=== PATIENT | female | born 1995 | race Caucasian/White ===

== ENCOUNTER → 2018-09-28 14:51 | Outpatient (CLI) | payer OTHER, SELFPAY ==
[2018-09-28 16:37] LABS: TSH w/ Reflex to FT4 3.12 uIU/mL (0.47-4.68)
[2018-09-28 19:03] LABS: Bilirubin Urine UA NEGATIVE (NEGATIVE); Color Urine UA YELLOW; Glucose Urine UA NEGATIVE (Normal); Ketones Urine UA 2+ (NEGATIVE); Leukocyte Esterase Urine UA TRACE (NEGATIVE); Nitrite Urine UA POSITIVE (Negative); Occult Blood Urine UA TRACE-LYSED (Negative); Protein Urine UA NEGATIVE (Negative); Specific Gravity Urine UA >=1.030 (1.000-1.035); Urobilinogen Urine UA 0.2 E.U./dL (0.2); pH Urine UA 5.5 (4.5-8.0)
[2018-09-28 19:06] LABS: RBC Urine 0-1/HPF (0-5/HPF); WBC Urine 5-10/HPF (0-5/HPF)
[2018-09-28 19:07] LABS: Amorphous Sediment Urine 2+; Appearance Urine UA Slightly Cloudy; Bacteria Urine Few (2-10); Culture Indicated Urine Specimen Cultured; Mucus Urine 1+ (Negative); Squamous Epithelial Cell Urine 5-10 /HPF
== END ==
PROVIDERS: Visit Provider Family Medicine
DX: E03.9 Hypothyroidism, unspecified (principal); R82.90 Unspecified abnormal findings in urine; Z87.440 Personal history of urinary (tract) infections
CPT/HCPCS: 36415; 81001; 84443; 87086

== ENCOUNTER → 2018-10-29 12:46 | Outpatient (CLI) | payer OTHER, SELFPAY ==
--- NOTE | 2018-10-29 12:46 | DI.US.S_ITS ---
PROCEDURE: US OB >= 14 WEEKS FETUS INDICATIONS: 20 weeks gestation OUTSIDE/PRIOR DATING DATA: Last menstrual period (LMP): 05/21/18. LMP-based estimated date of delivery (ALIDA): 03/15/19. First dating scan (date and location): 10/29/18. Estimated date of delivery (ALIDA) from first dating scan: 03/12/19. TECHNIQUE: Real-time scanning was performed of the fetus, with image documentation and biometric measurements. Endovaginal scanning: No COMPARISON: None. FINDINGS: General: A single living intrauterine gestation is present. Presentation: Transverse. Placenta: Placental position is anterior, without previa. Amniotic fluid index: 16.4 cm, normal range is 5-24 cm. heart rate: 153 beats per minute. Maternal cervical canal: 4.5 cm long. Normal lower limit is 2.5 cm. biometrics: Biparietal diameter: 20 weeks 4 days Head circumference: 20 weeks 4 days Abdominal circumference: 21 weeks 4 days Femur length: 20 weeks 3 days Estimated gestational age from initial scan: not applicable. Composite gestational age from present scan: 20 weeks 6 days Estimated weight and percentile: 393 g, 77nd percentile Measurement variability for biometric dating: +/- 7 days from 14 weeks to 15 weeks 6 days gestation, +/- 10 days from 16 weeks to 21 weeks 6 days gestation, +/- 2 weeks from 22 weeks to 27 weeks 6 days gestation, +/- 3 weeks for 28 weeks gestation or later. weight reference: 4500 g or EFW >90/95% is considered macrosomia or large for gestational age. EFW <10% is small for gestational age. EFW 5% or less is considered intra-uterine growth restriction. Anatomic survey: Neuro: Ventricles are non-dilated at less than 10 mm. Cisterna magna is normal at 3-11 mm. Cerebellum is normal in size and morphology. Nuchal skin fold: Normal at less than 6 mm between 14-21 weeks gestational age. Face: Nose and lips are normal, and facial profile is not well-seen. Spine: No evidence for spina bifida. Heart: 4-chambered heart is present, with normal ventricular outflow tracts. Diaphragm: Diaphragm is intact. Stomach: Left-sided stomach is present. Kidneys: No hydronephrosis. Normal is less than 5 mm in 2nd trimester, less than 7 mm in 3rd trimester. Cord: 3-vessel cord has orthotopic insertion. Bladder: Normal in size. Extremities: All 4 extremities identified. IMPRESSION: 1. Single living IUP present with a mean composite gestational age of 20 weeks 6 days corresponding to ultrasound ALIDA of 03/12/19. 2. Facial profile is not well visualized otherwise normal anatomy. Dictated by: Maicol MEREDITH Interpreted: Radha Sandoval MD on 10/29/2018 at 14:41 Approved by: Radha Sandoval M.D. on 10/29/2018 at 15:52
== END ==
PROVIDERS: Visit Provider Family Medicine
DX: Z34.92 Encounter for supervision of normal pregnancy, unspecified, second trimester (principal); Z3A.20 20 weeks gestation of pregnancy
CPT/HCPCS: 76811

== ENCOUNTER 2018-11-13 23:23 | Outpatient (CLI) | payer OTHER, SELFPAY ==
--- NOTE | 2018-11-15 08:18 | PM.OBTRLD ---
Visit Information Visit Information Date of evaluation: 11/13/18 Primary OB Provider: Suzanne Abdullahi Reason for Evaluation: Yes rule out labor Vital Signs Vital Signs: Blood pressure 115/66, pulse 107, temperature 97.6? PFSH Social History Smoking Status: Former smoker Evaluation Evaluation Baseline heart rate: 130 Variability: Moderate (11-25) monitor accelerations: Present monitor decelerations: Absent Contraction Frequency (minutes): 0 Non-invasive Membranes Rupture Test: negative Diagnosis, Plan/Disposition Final Diagnosis (1) 22 weeks gestation of : Current Visit: No Status: Acute (2) Premature uterine contractions in second trimester, antepartum: Current Visit: No Status: Acute Plan/Disposition Plan: Reassurance there is no rupture membranes and no evidence of contractions. Normal vaginal discharge in likely musculoskeletal or GI pain. Reassurance but call if there is any change. OB Disposition: home
== END 2018-11-14 00:10 | disposition home or self-care (01) ==
LOC: OB 11-15 15:49
PROVIDERS: Visit Provider Family Medicine
DX: Z34.02 Encounter for supervision of normal first pregnancy, second trimester (principal); Z3A.22 22 weeks gestation of pregnancy
CPT/HCPCS: 59025; 84112; G0378; G0379

== ENCOUNTER → 2018-12-03 09:01 | Outpatient (CLI) | payer OTHER, SELFPAY ==
[2018-12-03 10:41] LABS: Hematocrit 34.8 % (36-46); Hemoglobin 11.9 g/dL (12.0-16.0)
[2018-12-03 11:04] LABS: GTT (PREG) 1 Hour PP 50gm Dose 123 mg/dL (76-139)
[2018-12-03 13:30] LABS: TSH w/ Reflex to FT4 2.41 uIU/mL (0.47-4.68)
== END ==
PROVIDERS: PCP Family Medicine; Visit Provider Family Medicine
DX: Z34.82 Encounter for supervision of other normal pregnancy, second trimester (principal)
CPT/HCPCS: 36415; 82950; 84443; 85014; 85018

== ENCOUNTER → 2019-02-04 14:35 | Outpatient (CLI) | payer OTHER, SELFPAY ==
[2019-02-04 16:35] LABS: TSH w/ Reflex to FT4 2.56 uIU/mL (0.47-4.68)
== END ==
PROVIDERS: PCP Family Medicine; Visit Provider Family Medicine
DX: E03.9 Hypothyroidism, unspecified (principal); O99.280 Endocrine, nutritional and metabolic diseases complicating pregnancy, unspecified trimester
CPT/HCPCS: 36415; 84443

== ENCOUNTER → 2019-02-14 11:45 | Outpatient (CLI) | payer OTHER, SELFPAY ==
[2019-02-15 11:56] LABS: Strep Grp B PCR NEG for Grp B Strep
== END ==
PROVIDERS: PCP Family Medicine; Visit Provider Family Medicine
DX: Z34.83 Encounter for supervision of other normal pregnancy, third trimester (principal); Z3A.36 36 weeks gestation of pregnancy
CPT/HCPCS: 87653

== ENCOUNTER 2019-03-12 22:33 | Outpatient (CLI) | payer OTHER, SELFPAY | END 2019-03-12 23:10 | disposition home or self-care (01) | LOC: OB 03-15 16:37 | PROVIDERS: PCP Family Medicine | DX: O47.1 False labor at or after 37 completed weeks of gestation (principal); Z3A.40 40 weeks gestation of pregnancy | CPT/HCPCS: 59025; G0378; G0379 ==

== ENCOUNTER 2019-03-16 03:51 | Outpatient (CLI) | payer OTHER, SELFPAY | END 2019-03-16 05:00 | disposition home or self-care (01) | LOC: OB 03-18 10:43 | PROVIDERS: PCP Family Medicine; Visit Provider Family Medicine | DX: O47.03 False labor before 37 completed weeks of gestation, third trimester (principal); Z3A.40 40 weeks gestation of pregnancy | CPT/HCPCS: 59025; G0378; G0379 ==

== ENCOUNTER 2019-03-19 04:14 | Inpatient (IN) | payer OTHER, SELFPAY ==
[2019-03-19 04:55] LABS: Add Manual Diff / Slide Review NO; Basophils Absolute Auto 200 /uL (0-100); Basophils Percent Auto 1.3 % (0-2); Eosinophils Absolute Auto 100 /uL (0-450); Eosinophils Percent Auto 0.8 % (2-4); Hematocrit 37.1 % (36-46); Hemoglobin 12.2 g/dL (12.0-16.0); Lymphocytes Absolute Auto 3300 /uL (1100-4500); Mean Corpuscular Hemoglobin 26.9 PG (26-34); Mean Corpuscular Volume 81.6 fL (80-100); Monocytes Absolute Auto 1000 /uL (0-900); Neutrophils Absolute Auto 7400 /uL (1500-7000); Neutrophils Percent Auto 61.9 % (50-75); Platelet Count 342 X10^3/uL (150-400); Red Blood Cell Count 4.54 X10^6/uL (4.0-5.2); Red Cell Distribution Width 14.8 % (11.6-14.8)
--- NOTE | 2019-03-19 06:22 | PM.OBHP.1 ---
OB HPI Date/Time Date of admission: 03/19/19 Date Patient Seen: 03/19/19 Time Patient Seen: 05:15 History of Present Condition Chief complaint: evaluation of labor : 2 Para: 1 Estimated Date of Delivery: 03/15/19 Estimated Gestational Age (weeks): 40w4d Narrative: Faviola Bray is a 23 year old at 40 weeks and 4 days gestation who presented in active labor. was uncomplicated with the exception of well-controlled hypothyroidism. History of Present care: good care, initiated at week # (16), number of visits (11) and pounds weight gain (21) Dating criteria: LMP confirmed by 1st trimester US Ultrasounds: normal mid trimester US Obstetrical complications: none Medical complications: other (Hypothyroidism) Preadmission Labs Blood type: O (+) positive -: Antibody screen: negative, GBS status: negative, HBsAG: negative, HIV: negative and RPR/VDLR: negative -: Chlamydia screen: not detected and Gonorrhea screen: not detected -: Rubella: immune and Varicella: immune HCT: 42.6 PAP: Normal 1 hr GTT: 123 Prior (ies) History: 07/16/2016 41 weeks 7 lbs 5 oz female, epidural Evaluation Evaluation Baseline heart rate: 145 Variability: Moderate (11-25) monitor accelerations: Present monitor decelerations: Early Contraction Frequency (minutes): 2 Uterine Contraction Intensity: Strong/Firm Category of Tracing: I Cervical dilation (cm): 10 Cervical effacement (%): 100 station: 0 Laboratory results: Laboratory Tests 03/19/19 03/19/19 04:40 04:40 WBC 12.0 H RBC 4.54 Hgb 12.2 Hct 37.1 MCV 81.6 MCH 26.9 MCHC 33.0 RDW 14.8 Plt Count 342 Neut % (Auto) 61.9 Lymph % (Auto) 28.0 [place] % (Auto) 8.0 Eos % (Auto) 0.8 L Baso % (Auto) 1.3 Neut # (Auto) 7400 H Lymph # (Auto) 3300 [place] # (Auto) 1000 H Eos # (Auto) 100 Baso # (Auto) 200 H Blood Type O Positive Antibody Screen Negative PFSH Medical History Hypothyroidism (Chronic) Vitiligo (Chronic) Spontaneous vaginal delivery (Resolved) Social History marital status: number of children: 1 occupational status: unemployed Smoking Status: Former smoker alcohol intake: never substance use type: does not use Social History marital status: number of children: 1 occupational status: unemployed Smoking Status: Former smoker alcohol intake: never substance use type: does not use Meds Home Medications Medication Instructions Recorded Confirmed Type levothyroxine 88 mcg capsule 88 mcg PO DAILY #30 cap 02/05/19 03/16/19 Rx Allergies Allergy/AdvReac Type Severity Reaction Status Date / Time No Known Drug Allergies Allergy Verified 03/16/19 05:10 Exam Vital Signs (past 8 hours): 122/60 HR 111 Const General: cooperative, healthy appearing and acute distress HENMT Head: normal to inspection Ears: hearing grossly normal bilaterally Nose: external nose normal Face and sinus: normal facial exam Mouth: oral mucosae normal Eyes General: appearance normal, both eyes and all related structures Neck Neck: normal visual inspection Resp Effort & Inspection: normal respiratory effort Cardio Rate: regular rate Rhythm: regular rhythm Manual OB Exam: dilated 10, effaced fully and station 0 Presentation: vertex Estimated Weight (lbs): 8 Amniotic Fluid: clear Back/Spine/Pelvis Back: normal to inspection Extrem General: normal to inspection and no pedal edema Objective Labs Result Diagrams: 03/19/19 04:40 Labs: Laboratory Results - last 24 hr 03/19/19 03/19/19 04:40 04:40 WBC 12.0 H RBC 4.54 Hgb 12.2 Hct 37.1 MCV 81.6 MCH 26.9 MCHC 33.0 RDW 14.8 Plt Count 342 Neut % (Auto) 61.9 Lymph % (Auto) 28.0 [place] % (Auto) 8.0 Eos % (Auto) 0.8 L Baso % (Auto) 1.3 Neut # (Auto) 7400 H Lymph # (Auto) 3300 [place] # (Auto) 1000 H Eos # (Auto) 100 Baso # (Auto) 200 H Blood Type O Positive Antibody Screen Negative Assessment and Plan Assessment and Plan Assessment and Plan narrative: 23 year old at 40+4 weeks gestation in active labor. GBS negative. Epidural now Anticipate vaginal delivery
--- NOTE | 2019-03-19 06:37 | PM.OBPRVD ---
Delivery date: 03/19/19 Delivery monitor: external FHT Route of delivery: L&D Laceration Description: None Estimated blood loss (mL): 250 Anesthesia type: Epidural Narrative: Patient is a 23-year-old at 40+4 weeks gestation who gave on 03/19/19 at 6:02 a.m.. ALIDA: 03/15/19 Hospital problems: 40 weeks gestation Epidural analgesia STAGE I: Labor Patient presented to the center in active labor. Contractions began at home at approximately 2:00 a.m.. On admission she was 5 cm and progressed rapidly to complete. Spontaneous rupture of membranes occurred at approximately 5:00 a.m. with clear fluid. Patient received an epidural with adequate pain control. heart tones were category 1 throughout stage I. Stage I duration approximately 3 hours. STAGE II: Delivery Spontaneous vaginal delivery occurred at 6:02 a.m.. Infant was vertex and MIRA. There was a less than 60 second shoulder dystocia which was relieved with Wolfgang maneuver. Infant was vigorous after delivery with Apgars of 8 and 9. No resuscitation required beyond drying and stimulating. Second stage of labor lasted 62 minutes. STAGE III: Placenta/Cord Placenta delivered at 6:07 a.m. after active management and appeared intact with a three-vessel cord. There were no vaginal or perineal lacerations. EBL: 250 mL. Needle and sponge counts were correct. The vagina was inspected and no items were left in situ. Patient was doing well with Michail, her and at bedside. Baby 1: gender: Male Presentation: vertex cord vessel description: 3 Vessels
[2019-03-19] MEDS: IBUPROFEN 600 MG TABLET PO (18:53)
--- NOTE | 2019-03-20 08:35 | PM.OBDS.1 ---
Discharge Providers Date of admission: 03/19/19 04:14 Discharge Date: 03/20/19 Primary care physician: Suzanne Abdullahi DO Consults: 03/19/19 10:10 Consult to [employer] Research Engineer Routine Comment: Discharge provider: Suzanne Abdullahi DO Summary Date Patient Seen: 03/20/19 Time Patient Seen: 08:18 Procedures: Spontaneous vaginal delivery Epidural analgesia Hospital Course: Patient is a 23-year-old G2 now P2 status post spontaneous vaginal delivery on 03/19/19. Patient presented to the center in active labor and progressed rapidly to complete. She received an epidural for pain control immediately prior to stage II. Delivery was complicated by a 1 minutes shoulder dystocia which resolved with Wolfgang maneuver. Infant was vigorous after delivery. Patient did not sustain any vaginal or perineal lacerations. course uncomplicated. going well. Patient is eating, ambulating, voiding and passing flatus. Peripartum Data Delivery Method: Natural Vaginal Laceration description: None complications: none 1: Gender: Male Disposition of : home Discharge Diagnosis (1) 40 weeks gestation of : Status: Acute (2) Spontaneous vaginal delivery: Status: Acute Status at Discharge Cognitive/behavioral status at discharge: at baseline, oriented Overall status at discharge: patient is back to baseline Time Spent with Patient Total time spent providing and/or coordinating discharge services: Less than 30 minutes Objective Labs Result Diagrams: 03/19/19 04:40 Exam Vital Signs (past 8 hours): Temperature 97.5? blood pressure 113/74 heart rate 106 respirations 16 Narrative Exam Narrative: General: Awake and alert, no acute distress. HEENT: NCAT, EOMI, moist oral mucosa CV: Regular rate and rhythm, no murmurs, rubs or gallops Lungs: CTAB, no wheezes, rales, or rhonchi Abdomen: Soft, nontender; bowel tones active; uterus firm 1 cm below umbilicus Extremities: Warm, no edema, 2+ pedal pulses bilaterally Discharge Plan Discharge Plan Patient Disposition: Home Discharge comment: Counseled patient to call for fevers, severe pain or bleeding through more than a pad an hour. Discharge Med Rec/Prescriptions Prescriptions: Continued levothyroxine 88 mcg capsule 88 mcg PO DAILY Qty: 30 RF: 2 Follow up/Referrals: Suzanne Abdullahi DO [Primary Care Provider] - 6 Weeks Visit Report/Discharge Packet Visit Report Forms: Stroke Signs & Symptoms Discharge Data Primary Care Provider: Suzanne Abdullahi Attending Provider: Cecelia Lal Admit Date/Time: 03/19/19 04:14
[2019-03-20] MEDS: LEVOTHYROXINE 88 MCG TABLET PO (09:09)
[2019-03-20 10:10] VITALS: BP 128/47; PULSE 88; RESP 18; TEMP 36.9
[2019-03-20 11:49] VITALS: BP 128/47; PULSE 88; RESP 18; TEMP 36.9
== END 2019-03-20 13:30 | disposition home or self-care (01) | DRG 807 ==
PROVIDERS: Admitting Provider Specialist; PCP Family Medicine; Visit Provider Specialist
DX: O66.0 Obstructed labor due to shoulder dystocia (principal); Z37.0 Single live birth; Z3A.40 40 weeks gestation of pregnancy
CPT/HCPCS: 01967; 59050; 59400; 85025; 86850; 86900; 86901; G0379; J3010

== ENCOUNTER 2019-05-27 11:13 | Emergency (ER) | payer OTHER, SELFPAY ==
[2019-05-27 11:24] VITALS: BP 131/75; PULSE 87; RESP 18; TEMP 36.2; O2SAT 100; BMI 30.2
--- NOTE | 2019-05-27 11:34 | ED_ITS ---
HPI - Abdominal Pain General Chief Complaint: Abdominal Pain Stated Complaint: sharp pains in stomach,vomiting/nausea Time Seen by Provider: 05/27/19 11:29 Source: patient and family () Mode of arrival: ambulatory Limitations: no limitations History of Present Illness HPI narrative: This is a 24-year-old female comes to the emergency depart with complaint of abdominal pain in the right upper quadrant. Patient states it came on suddenly early this morning. She has nausea and vomiting since then. Patient states she has not had any fevers or chills. She states that the pain does radiate a little bit back around to the back. She denies pain elsewhere in her abdomen. She has had a little diarrhea no constipation. No urinary symptoms. Some mild vaginal bleeding that is continued since she delivered have baby 2 months ago. She did have an IUD placed on Thursday. Patient denies any vaginal discharge. She states otherwise she has been healthy other than hypothyroidism, she denies any other prior surgeries. No allergies to medications. No tobacco, alcohol or illicit. She states she is breast-feeding. She had a vaginal delivery with no complications. Related Data Previous Rx's Medication Instructions Recorded levothyroxine 88 mcg capsule 88 mcg PO DAILY #30 cap 02/05/19 CHICHI Nipple Cream 1 gram TRANSDERMAL DAILY #15 gram 04/25/19 ondansetron HCl [Zofran] 4 mg PO QID PRN #10 tab 05/27/19 Allergies Allergy/AdvReac Type Severity Reaction Status Date / Time No Known Drug Allergies Allergy Verified 03/16/19 05:10 Review of Systems Review of Systems ROS Unobtainable: All systems reviewed & are unremarkable except as noted in HPI and below Constitutional Denies chills and Denies fever(s) Cardiovascular Denies chest pain and Denies dyspnea Respiratory Denies dyspnea Gastrointestinal Gastrointestinal: Reports abdominal pain, Denies melena, Denies hematochezia, Denies change in bowel habits, Reports diarrhea, Reports nausea and Reports vomiting Genitourinary Reports as per HPI, Reports abnormal vaginal bleeding (mild bleeding, 2months ), Denies hematuria, Denies urinary frequency, Denies dysuria, Denies flank pain, Denies urinary incontinence, Denies urinary urgency and Denies vaginal discharge Musculoskeletal Denies back pain [facility] Medical History Hypothyroidism (Chronic) Vitiligo (Chronic) Spontaneous vaginal delivery (Resolved) Social History marital status: number of children: 1 occupational status: unemployed Smoking Status: Never smoker alcohol intake: never substance use type: does not use Social History marital status: number of children: 1 occupational status: unemployed Smoking Status: Never smoker alcohol intake: never substance use type: does not use Exam Narrative Exam Narrative: GENERAL: Alert and oriented x three, well-nourished, well- appearing female in mild to moderate distress. HEENT: Head normocephalic, atraumatic, EOMI, pupils reactive, face symmetric, moist mucous membranes NECK: Supple, full range of motion CARDIOVASCULAR: Regular rate and rhythm without murmurs, rubs or gallops. RESPIRATORY: Breath sounds equal bilaterally, no wheezes rales or rhonchi. ABDOMEN: Soft, positive for right upper quadrant tenderness. Normoactive bowel sounds all 4 quadrants. No guarding or rebound, rigidity, no mass : No CVA tenderness EXTREMITIES: Normal range of motion, no clubbing or edema. Neurovascularly intact NEUROLOGICAL: Cranial nerves II through XII grossly intact. Moving all extremities SKIN: Warm, dry, no petechiae, no rashes or lesions. Initial Vital Signs Initial Vital Signs: Vital Signs Temperature 97.1 F L 05/27/19 11:24 Pulse Rate 87 05/27/19 11:24 Respiratory Rate 18 05/27/19 11:24 Blood Pressure 131/75 05/27/19 11:24 Pulse Oximetry 100 05/27/19 11:24 Course Orders Ordered: ED Orders 05/27/19 11:38 US abdomen complete Stat 05/27/19 11:40 Complete Blood Count AUTO DIFF Stat Comprehensive Metabolic Panel Stat Lipase Stat Partial Thromboplastin Time Stat Prothrombin Time INR Stat Discontinued Medications Ketorolac Tromethamine (Toradol) 30 mg IV NOW ONE Stop: 05/27/19 11:39 Last Admin: 05/27/19 11:49 Dose: 30 mg Ondansetron HCl (Zofran) 4 mg IV NOW ONE Stop: 05/27/19 11:39 Last Admin: 05/27/19 11:49 Dose: 4 mg Vital Signs - 8 hr 07/19/19 11:24 05/27/19 14:38 Temperature 97.1 F L Pulse Rate 87 76 Respiratory Rate 18 17 Blood Pressure 131/75 Blood Pressure [Left Arm] 100/61 Pulse Oximetry 100 100 MDM - Abdominal Pain Lab Data Attestation: I reviewed the patient's lab results. Result diagrams: 05/27/19 11:40 05/27/19 11:40 Lab Results 05/27/19 05/27/19 05/27/19 Range/Units 11:40 11:40 11:40 WBC 4.8 (4.5-11.0) X10^3/uL RBC 5.02 (4.0-5.2) X10^6/uL Hgb 13.5 (12.0-16.0) g/dL Hct 40.3 (36-46) % MCV 80.3 (80-100) fL MCH 27.0 (26-34) PG MCHC 33.6 (30-36) % RDW 17.1 H (11.6-14.8) % Plt Count 338 (150-400) X10^3/uL Neut % (Auto) 60.5 (50-75) % Lymph % (Auto) 28.1 (25-40) % [place] % (Auto) 10.1 (3-14) % Eos % (Auto) 0.7 L (2-4) % Baso % (Auto) 0.6 (0-2) % Neut # (Auto) 2900 (1941-8853) /uL Lymph # (Auto) 1300 (3294-9969) /uL [place] # (Auto) 500 (0-900) /uL Eos # (Auto) 0 (0-450) /uL Baso # (Auto) 0 (0-100) /uL PT 11.9 (10.1-12.7) SECONDS INR 1.0 (0.9-1.3) APTT 32 (26.4-36.2) SECONDS Sodium 139 (137-145) mmol/L Potassium 4.0 (3.4-5.1) mmol/L Chloride 102 (98-107) mmol/L Carbon Dioxide 26 (22-32) mmol/L BUN 14 (7-17) mg/dL Creatinine 0.50 L (0.52-1.04) mg/dL Estimated GFR > 60.0 (>60) mL/min BUN/Creatinine Ratio 28.0 H (6-22) Glucose 99 (70-100) mg/dL Calcium 9.2 (8.4-10.2) mg/dL Total Bilirubin 0.5 (0.2-1.3) mg/dL AST 51 H (14-36) IU/L ALT 119 H (9-52) IU/L Alkaline Phosphatase 76 (38-126) U/L Total Protein 7.9 (6.3-8.2) g/dL Albumin 4.7 (3.5-5.0) g/dL Globulin 3.2 (1.7-4.1) g/dL Albumin/Globulin Ratio 1.5 (1.0-2.8) Lipase 91 (23-300) U/L Point of care testing: Point of Care Testing Test Results Negative Urine Dip Bedside Urine Glucose Negative Bedside Urine Bilirubin - Negative Bedside Urine Ketone - Negative Urine Specific [place] 1.030 Bedside Urine Occult Blood +/- Bedside Urine pH 6.0 Bedside Urine Protein - Negative Bedside Urine Urobilinogen - Negative Bedside Urine Nitrite - Negative Bedside Urine Leukocytes - Negative Esterase Imaging Data US - abdomen: Radiologist's impression: [place] [id number] Ultrasound Report Signed Patient: Faviola Bray R#: [id number] : 1995Acct:[id number] Age/Sex: 24 FDate of Service: 05/27/19 Loc: ED Accession Number: [id number] Procedure: US abdomen complete Ordering Provider: Kayli Dia D.O. PROCEDURE: US ABDOMEN COMPLETE INDICATIONS: RIGHT UPPER QUADRANT PAIN/VOMITING 2 MOS POST TECHNIQUE: Real-time scanning was performed of the abdominal and retroperitoneal organs, with image documentation. COMPARISON: None. FINDINGS: Liver: Liver is normal in size and homogeneous in echotexture. Gallbladder: Gallbladder is within normal limits. No sonographic Rose sign. Biliary ducts: Intrahepatic bile ducts are non-dilated. Extrahepatic bile duct caliber measures 3.8 mm. Normal is 6-7 mm or less in diameter, or 10 mm or less post-cholecystectomy. Pancreas: Visualized portions of the pancreas are sonographically normal. Spleen: Spleen is normal in size and homogeneous in echotexture. Kidneys: Kidneys are normal in size and echotexture. Right kidney measures 10.9 cm long; left kidney measures 11.1 cm long. No hydronephrosis or nephrolithiasis. No solid masses. Aorta: Visualized aorta is normal in caliber at less than 3 cm. Iliacs: Proximal common iliac arteries are normal in caliber at less than 2.5 cm. IVC: Intrahepatic inferior vena cava is patent. Miscellaneous: No free abdominal fluid. IMPRESSION: Unremarkable ultrasound examination of abdomen. No finding to explain patient's symptoms. Dictated by: Delfin Martinez M.D. on 05/27/2019 at 13:25 Approved by: Delfin Martinez M.D. on 05/27/2019 at 13:25 MDM Narrative Medical decision making narrative: Patient's ultrasound, lab work and urine do not show any acute changes. Patient was her right upper quadrant but is feeling much better. We discussed her findings, plan for follow-up. We discussed she could be having some biliary colic versus other causes. I recommended she follow up Thursday with her primary care to potentially get further evaluation maybe even possibly HIDA scanning if she is continuing to have symptoms. We also discussed if she is having much worsening symptoms she should return to the ER for CT. We did discuss that she can continue to breast feed on ibuprofen, Tylenol as well as Zofran. Discharge Plan Departure Patient Disposition: Home Clinical Impression: Abdominal pain Discharge Date/Time: 05/27/19 15:13 Interventions: ED Discharge Assessment Last Done: 05/27/19 15:13 Instructions: DI for Abdominal Pain-Adult Activity Restrictions/Additional Instructions: Follow-up with your primary care in the next 24-48 hours for recheck. Continue medications as prescribed, you may take ibuprofen up to 800 mg every 8 hours as needed for pain. You may alternate this with a 1000 mg of Tylenol every 8 hours as needed. Take Zofran 1 tablet sublingually as needed. Your prescription has been sent to the pharmacy in [place]. Return to the emergency department for any new or worsening symptoms, fevers greater than 100.4 F, worsening abdominal pain, persistent vomiting, black or bloody stools, difficulty with urination, passing out or other new or concerning symptoms. Prescriptions: New ondansetron HCl [Zofran] 4 mg tablet 4 mg PO QID PRN (Reason: nausea and vomiting) Qty: 10 RF: 0 No Action CHICHI Nipple Cream 1 gram transdermal DAILY Qty: 15 RF: 1 levothyroxine 88 mcg capsule 88 mcg PO DAILY Qty: 30 RF: 2 Referrals: Suzanen Abdullahi DO [Primary Care Provider] -
--- NOTE | 2019-05-27 11:38 | DI.US.S_ITS ---
PROCEDURE: US ABDOMEN COMPLETE INDICATIONS: RIGHT UPPER QUADRANT PAIN/VOMITING 2 MOS POST TECHNIQUE: Real-time scanning was performed of the abdominal and retroperitoneal organs, with image documentation. COMPARISON: None. FINDINGS: Liver: Liver is normal in size and homogeneous in echotexture. Gallbladder: Gallbladder is within normal limits. No sonographic Rose sign. Biliary ducts: Intrahepatic bile ducts are non-dilated. Extrahepatic bile duct caliber measures 3.8 mm. Normal is 6-7 mm or less in diameter, or 10 mm or less post-cholecystectomy. Pancreas: Visualized portions of the pancreas are sonographically normal. Spleen: Spleen is normal in size and homogeneous in echotexture. Kidneys: Kidneys are normal in size and echotexture. Right kidney measures 10.9 cm long; left kidney measures 11.1 cm long. No hydronephrosis or nephrolithiasis. No solid masses. Aorta: Visualized aorta is normal in caliber at less than 3 cm. Iliacs: Proximal common iliac arteries are normal in caliber at less than 2.5 cm. IVC: Intrahepatic inferior vena cava is patent. Miscellaneous: No free abdominal fluid. IMPRESSION: Unremarkable ultrasound examination of abdomen. No finding to explain patient's symptoms. Dictated by: Delfin Martinez M.D. on 05/27/2019 at 13:25 Approved by: Delfin Martinez M.D. on 05/27/2019 at 13:25
[2019-05-27] MEDS: KETOROLAC 60 MG/2 ML VIAL 30 MG IV (11:49)
[2019-05-27] MEDS: ONDANSETRON 4 MG/2 ML INJ IV (11:49)
[2019-05-27 11:54] LABS: Add Manual Diff / Slide Review NO; Basophils Absolute Auto 0 /uL (0-100); Basophils Percent Auto 0.6 % (0-2); Eosinophils Absolute Auto 0 /uL (0-450); Eosinophils Percent Auto 0.7 % (2-4); Hematocrit 40.3 % (36-46); Hemoglobin 13.5 g/dL (12.0-16.0); Lymphocytes Absolute Auto 1300 /uL (1100-4500); Lymphocytes Percent Auto 28.1 % (25-40); Mean Corpuscular HGB Conc 33.6 % (30-36); Mean Corpuscular Volume 80.3 fL (80-100); Monocytes Absolute Auto 500 /uL (0-900); Monocytes Percent Auto 10.1 % (3-14); Neutrophils Absolute Auto 2900 /uL (1500-7000); Neutrophils Percent Auto 60.5 % (50-75); Platelet Count 338 X10^3/uL (150-400); Red Blood Cell Count 5.02 X10^6/uL (4.0-5.2); Red Cell Distribution Width 17.1 % (11.6-14.8); White Blood Cell Count 4.8 X10^3/uL (4.5-11.0)
[2019-05-27 12:02] LABS: Prothrombin Time 11.9 SECONDS (10.1-12.7)
[2019-05-27 12:05] LABS: PTT Partial Thromboplastin Tim 32 SECONDS (26.4-36.2)
[2019-05-27 12:08] LABS: Alanine Aminotransferase 119 IU/L (9-52); Albumin 4.7 g/dL (3.5-5.0); Albumin Globulin Ratio 1.5 (1.0-2.8); Alkaline Phosphatase 76 U/L (38-126); Aspartate Aminotransferase 51 IU/L (14-36); Bilirubin Total 0.5 mg/dL (0.2-1.3); Blood Urea Nitrogen 14 mg/dL (7-17); Calcium 9.2 mg/dL (8.4-10.2); Carbon Dioxide 26 mmol/L (22-32); Chloride 102 mmol/L (98-107); Estimated Glomerular Filt Rate > 60.0 mL/min (>60); Globulin 3.2 g/dL (1.7-4.1); Glucose 99 mg/dL (70-100); HEMOLYSIS < 15 (0-50); Lipase 91 U/L (23-300); Sodium 139 mmol/L (137-145); Total Protein 7.9 g/dL (6.3-8.2)
[2019-05-27 14:38] VITALS: BP 100/61; PULSE 76; RESP 17; O2SAT 100
== END 2019-05-27 15:13 | disposition home or self-care (01) ==
PROVIDERS: Emergency Provider Emergency Medicine; PCP Family Medicine
DX: R10.9 Unspecified abdominal pain (principal)
CPT/HCPCS: 36591; 76700; 80053; 81003; 81025; 83690; 85025; 85610; 85730; 96374; 96375; 99282; 99284; J1885; J2405

== ENCOUNTER → 2019-07-12 10:20 | Outpatient (CLI) | payer OTHER, SELFPAY | PROVIDERS: PCP Family Medicine; Visit Provider Family Medicine | DX: J02.9 Acute pharyngitis, unspecified (principal); R50.9 Fever, unspecified | CPT/HCPCS: 87070 ==

== ENCOUNTER → 2019-07-19 11:47 | Outpatient (CLI) | payer OTHER, SELFPAY ==
[2019-07-19 13:43] LABS: Free T4, Direct Thyroxine 0.53 ng/dL (0.78-2.19)
== END ==
PROVIDERS: PCP Family Medicine; Visit Provider Family Medicine
DX: E03.9 Hypothyroidism, unspecified (principal)
CPT/HCPCS: 36415; 84439; 84443

== ENCOUNTER → 2019-10-05 11:00 | Outpatient (CLI) | payer OTHER, SELFPAY ==
[2019-10-05 13:27] LABS: Free T4, Direct Thyroxine 0.46 ng/dL (0.78-2.19)
== END ==
PROVIDERS: PCP Family Medicine; Visit Provider Family Medicine
DX: E03.9 Hypothyroidism, unspecified (principal)
CPT/HCPCS: 36415; 84439; 84443

== ENCOUNTER → 2019-12-30 09:21 | Outpatient (CLI) | payer OTHER, SELFPAY | PROVIDERS: PCP Family Medicine; Referring Provider Family Medicine; Visit Provider Family Medicine | DX: E03.9 Hypothyroidism, unspecified (principal) | CPT/HCPCS: 36415; 84439; 84443 ==

== ENCOUNTER → 2020-02-15 10:47 | Outpatient (CLI) | payer OTHER, SELFPAY | PROVIDERS: PCP Family Medicine; Referring Provider Family Medicine; Visit Provider Family Medicine | DX: E03.9 Hypothyroidism, unspecified (principal) | CPT/HCPCS: 36415; 84443 ==

== ENCOUNTER → 2020-05-07 15:27 | Outpatient (CLI) | payer OTHER, SELFPAY ==
[2020-05-07 16:22] LABS: Free T3, Triiodothyronine Free 4.02 pg/mL (2.77-5.27); Free T4, Direct Thyroxine 0.44 ng/dL (0.78-2.19)
[2020-05-07 16:36] LABS: Thyroid Stimulating Hormone 2.46 uIU/mL (0.47-4.68)
== END ==
PROVIDERS: PCP Family Medicine; Referring Provider Family Medicine; Visit Provider Family Medicine
DX: E03.9 Hypothyroidism, unspecified (principal)
CPT/HCPCS: 36415; 84439; 84443; 84481